=== PATIENT | female | born 1985 | race Caucasian/White ===

== ENCOUNTER 2019-09-08 10:23 | Outpatient (CLI) | payer OTHER | END 2019-09-08 10:49 | disposition home or self-care (01) | LOC: SONOGRAMA 10:23 | DX: R10.84 Generalized abdominal pain (principal) ==

== ENCOUNTER → 2020-04-12 | Outpatient (CLI) | payer OTHER | END | disposition home or self-care (01) | LOC: SONOGRAMA 13:20 → MAMO-SONO 15:15 | PROVIDERS: ATTEND General Practice | DX: R10.84 Generalized abdominal pain (principal); R73.01 Impaired fasting glucose; R31.29 Other microscopic hematuria; K21.9 Gastro-esophageal reflux disease without esophagitis; K29.60 Other gastritis without bleeding; R10.2 Pelvic and perineal pain ==

== ENCOUNTER 2020-05-27 16:58 | Outpatient (CLI) | payer OTHER | END 2020-05-27 19:00 | disposition home or self-care (01) | LOC: RAD 16:58 | PROVIDERS: ATTEND Specialist | DX: Z01.811 Encounter for preprocedural respiratory examination (principal) ==

== ENCOUNTER 2020-05-28 13:11 | Outpatient (CLI) | payer OTHER | END 2020-05-28 13:19 | disposition home or self-care (01) | LOC: EKG 13:11 | PROVIDERS: ATTEND Specialist | DX: Z01.810 Encounter for preprocedural cardiovascular examination (principal) ==

== ENCOUNTER 2021-01-10 16:16 | Inpatient (IN) | payer OTHER ==
[~2021-01-10] VITALS: Ht 165.1 cm; Wt 59.0 kg
--- NOTE | 2021-01-10 16:50 | NUR ---
SE RECIBE PACIENTE ALERTA, ORIENTADA X 3 ESFERAS REFIERE VENIR POR HEMOGLOBINA 8.2. SE UBICA EN AREA DE OBSERVACION. NO TIENE INTERNISTA EN HOSPITAL.
--- NOTE | 2021-01-10 17:35 | NUR ---
SE EDUCA A PTE SOBRE TX MEDICO ESTA REFIERE ENTENDER. SE VERÓNICA MUESTRAS DE LABORATORIO UTILIZANDO MEDIDAS ASEPTICAS. SE COLOCA H/L A PTE Y SE COLOCA EN DOMINICK.
--- NOTE | 2021-01-10 21:21 | NUR ---
SE LLAMA A [facility] Y SE REALIZA REQUISICION DE 4 UNIDADES DE PRBC PARA TRANSFUNDIR. SE VERÓNICA TUBOS PILOTOS Y TUBO PARA TIPO Y LUANA. SE LLEVAN MUESTRAS A LABORATORIO, SE VUELVE A LLAMAR A BANCO DE MEHDI DE [facility] PARA NOTIFICAR EL RECOGIDO DE LOS MISMOS.
--- NOTE | 2021-01-11 03:18 | NUR ---
PT ALERTA Y ORIENTADA X3 ESFERAS SE RECIBE EN DOMINICK, PARVEZ. PT TRANQUILA Y SIN DIFICULTAD RESPIRATORIA. VENOPUNCION PATENTE. PENDIENTE TRANSFUNDIR 4 UNIDADES DE PRBC ORDENADAS Y REQUISADAS EN TURNO 3-11. SE LLAMA A BANCO DE MEHDI CON LA OLIVIA S.BAUZO QUIEN INDICA LA ORDEN ESTA SIENDO PROCESADA AL MOMENTO 3:20AM. PT PRESENTA S/V ESTABLES AL MOMENTO. SE MANTIENE BAJO OBSERVACION POR CAMBIOS EN JONATHAN. EN RECORD MEDICO SE ENCUENTRA CONSENTIMIENTO DE TRANSFUCION DE MEHDI Y GONZALO DERIVADOS FIRMADO POR MD Y CONSENTIDO POR PT.
--- NOTE | 2021-01-11 07:08 | NUR ---
PACIENTE ALERTA Y ORIENTADA EN GONZALO OLIVER ESFERAS, PRESENTA BUEN PATRON RESPIRATORIO Y CONRADO DE DOLOR. SALINE LOCK EN BRAZO LT PATENTE Y CONRADO DE S/S DE FLEBITIS E INFILTRACION. PENDIENTE EVALUACION TRANSFUNDIR 4 PRBC COMPLETAS Y EVALUACION DE DR JAMES RIVERA POR MIOMA UTERINO Y ANEMIA CON NELLY HGB EN 7.9
[2021-01-13] MEDS ORDERED: FERROUS SULFAT325 MG PO (07:52)
== END 2021-01-13 09:11 | disposition home or self-care (01) | DRG 812 ==
LOC: ER 16:16 → OB/GYN 01-11 11:15
PROVIDERS: ADMIT Specialist; ATTEND Specialist
PROC: 30233N1 Transfusion of Nonautologous Red Blood Cells into Peripheral Vein, Percutaneous Approach (ICD-10-PCS; principal; 2021-01-11)
PROC: BU46ZZZ Ultrasonography of Uterus (ICD-10-PCS; 2021-01-11)
DX: D62 Acute posthemorrhagic anemia (principal); N93.9 Abnormal uterine and vaginal bleeding, unspecified; D25.9 Leiomyoma of uterus, unspecified; Z20.822 Contact with and (suspected) exposure to COVID-19

== ENCOUNTER 2021-02-13 16:02 | Emergency (ER) | payer OTHER ==
[~2021-02-13] VITALS: Ht 165.1 cm; Wt 59.0 kg
[~2021-02-13 16:02] MED LIST: FERROUS SULFAT325 MG PO
[2021-02-13] MEDS ORDERED: ZOFRAN4 MG PO (22:12)
[2021-02-13] MEDS ORDERED: PEPCID AC20 MG PO (22:12)
[2021-02-13] MEDS ORDERED: MACROBID 100 M100 MG PO (22:12)
== END 2021-02-13 22:58 | disposition home or self-care (01) ==
LOC: ER 16:02
DX: R11.11 Vomiting without nausea (principal); N39.0 Urinary tract infection, site not specified